=== PATIENT | male | born 1985 | race Caucasian/White ===

== ENCOUNTER 2016-09-16 15:58 | Emergency (ER) | payer OTHER, MEDICARE ==
[~2016-09-16] VITALS: Ht 170.2 cm; Wt 119.9 kg
[~2016-09-16 15:58] MED LIST: ANDROGEL1.62% TOP; BENZONATATE200 M1 PO; BENZTROPINE MESY1 M1 PO; BENZTROPINE MESY2 MG PO; BUSPIRONE HCL15 M1 PO; CELEBREX200 M1 PO; CLONAZEPAM0.5 MG PO; CLONAZEPAM1 MG PO; CLOZARIL100 M1 PO; CLOZARIL100 MG PO; DEPAKOTE250 MG PO; DICYCLOMINE HCL20 M1 PO; DIVALPROEX SOD500 M1 PO; FLOMAX0.4 M1 PO; GABAPENTIN100 M2 PO; HYDROCODONE/ACE1 TA1 PO; HYOSCYAMINE0.125 M6 PO; LEVSIN0.125 M1 PO; LISINOPRIL10 M1 PO; MEDROL DOSEPAK1 PAC PO; MOBIC 15MG15 MG PO; MOTRIN800 MG PO; NAPROSYN500 M1 PO; NORCO 325 MG-51 TAB PO; NORFLEX100 MG PO; ORPHENADRINE C100 MG PO; PERCOCET 5-3251 EACH PO; REGLAN10 M1 PO; ROBITUSSIN W/CO10 ML PO; ROZEREM8 MG PO; SEROQUEL25 M1 PO; TENORMIN50 M1 PO; TESTOSTERO200 MG/1 M IM; TRAMADOL50 MG PO; TRAZODONE150 MG PO; TYLENOL #31 TAB PO; TYLENOL WITH C1 EACH PO; VOLTAREN-XR100 MG PO; VOLTAREN75 MG PO; ZITHROMAX Z-PA250 M1 PO; ZITHROMAX250 M2 PO; ZOFRAN ODT4 M1 SL; ZOFRAN ODT4 MG PO; ZOFRAN4 M1 SL
--- NOTE | 2016-09-16 16:54 | ED GI/GU/ABDOMINAL COMPLAINT ---
History of Present Illness General Chief Complaint: Abdominal Pain/Flank Pain Stated Complaint: RUQ ABD PAIN Source: patient, old records Exam Limitations: no limitations Vital Signs & Intake/Output Vital Signs & Intake/Output Vital Signs Date Time Temp Pulse Resp B/P Pulse O2 O2 Flow FiO2 Ox Delivery Rate 09/16 1929 98.0 91 18 130/73 97 Room Air 09/16 1623 97.6 91 20 116/83 96 Room Air ED Intake and Output 09/17 0000 09/16 1200 Intake Total 0 Output Total Balance 0 Intake, Oral 0 Patient 264 lb Weight Allergies Coded Allergies: adhesive (Mild, MAKES SKIN RED 09/16/16) phenobarbital (CASE SKIN 09/16/16) Reconcile Medications Atenolol 50 MG TABLET 1 TAB PO DAILY BLOOD PRESSURE (Reported) Benztropine Mesylate 1 MG TABLET 1 TAB PO DAILY MENTAL HEALTH (Reported) BUSPIRONE HCL (Buspirone HCl) 15 MG TAB 1 TAB PO TID MENTAL HEALTH (Reported) Celecoxib (Celebrex) 200 MG CAPSULE 1 CAP PO PRN PAIN/INFLAMMATION (Reported) Clozapine (Clozaril) 100 MG TABLET 2.5 TAB PO QPM MENTAL HEALTH (Reported) Dicyclomine Hydrochloride (Bentyl) 10 MG CAPSULE 1 CAP PO TID PRN pain Gabapentin 100 MG CAPSULE 1 CAP PO BID UNKNOWN (Reported) Hyoscyamine Sulfate 0.125 MG TAB.RAPDIS 1 TAB PO AC & AT BEDTIME GI (Reported ) Lisinopril 10 MG TABLET 1 TAB PO DAILY BP (Reported) Metoclopramide HCl (Reglan) 10 MG TABLET 1 TAB PO TID PRN nausea 30 minutes before meals and bedtime Promethazine HCl 25 MG TABLET 1 TAB PO TID PRN N/V (Reported) Quetiapine Fumarate (Seroquel) 25 MG TABLET 1 TAB PO TID MENTAL HEALTH ( Reported) Ramelteon (Rozerem) 8 MG TAB 1 TAB PO QPM SLEEP (Reported) Tamsulosin HCl (Flomax) 0.4 MG CAP.ER.24H 1 CAP PO DAILY URINARY HESITENCY Testosterone Cypionate 200 MG/1 ML VIAL 1 ML IM Q3W TESTOSTERONE (Reported) Triage Note: TRIAGE: PT TO ER C/C RUQ ABD PAIN X 1 MONTH, INTERMITTENT. +N/V, DENIES DIARRHEA TODAY BUT STATES HE HAD DIARRHEA LAST WEEK R/T ANTIBIOTICS HE WAS TAKING FOR ?UTI. LNBM 2 DAYS AGO. -URINARY S/S. Triage Nurses Notes Reviewed? yes Onset: Gradual Duration: week(s):, constant, waxing and waning Timing: recent history Quality/Severity: aching, cramping Severity Numbers: 6 Location: right upper quadrant Radiation: no radiation Activities at Onset: none No Modifying Factors: none Associated Symptoms: nausea/vomiting HPI: This is a 31-year-old male well-known to this ER history of schizoaffective disorder currently being worked up by GI for pancreatitis presents complaining of persistent right upper quadrant epigastric pain constant waxing and waning in intensity for the past one month associated with nausea and vomiting. He states he was seen by his REFORMATORY ATTENDANT today and was sent to the ER for further workup including labs IV fluids. The patient denies any change iN his bowel movements no black or bloody stools no weight loss. His only abdominal surgeries are significant for an appendectomy and hernia repair. He denies tobacco or alcohol use no chest pain or shortness of breath no urinary complaints no hematuria (RASHARD BUCIO) Past History Travel History Traveled to [place] past 21 day No Medical History Any Pertinent Medical History? 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 No (RASHARD BUCIO) Review of Systems Review of Systems Constitutional: Reports: see HPI. All Other Systems: Reviewed and Negative Comments Review of systems: See HPI, All other systems negative. Constitutional, no chills no fever, no malaise HEENT: No visual changes no sore throat no congestion, no ear pain Cardiovascular: No chest pain , no palpitation Skin, no jaundice no rashes, no change in skin Respiratory: No dyspnea no cough no sputum no hemoptysis GI: nausea vomiting, no diarrhea, no bloating/constipation : No dysuria No hematuria, Muscle skeletal: No joint pain, no joint swelling, no back pain, no neck pain, Neurologic: No numbness no confusion, no headache Psych: No stress Heme/endocrine: No bruising no bleeding Immunology: No lymphadenopathy (RASHARD BUCIO) Physical Exam Physical Exam Gastrointestinal: normal bowel sounds, soft, non-tender Comments: Well-developed well-nourished person in no acute distress HEENT: Normal EENT exam; PERRL, EOMI, HEAD is atraumatic. moist mucous membranes. Neck: Supple, normal range of motion Back: Nontender, no CVA tenderness. Full range of motion Cardiovascular: Regular rate and rhythms no murmurs rubs Respiratory: Chest nontender.No respiratory distress. Patient speaking in full complete sentences. Breath sounds clear to auscultation bilaterally: NO W/R/R Abdomen: Soft, nontender negative Paredes sign, there is no reproducible tenderness to the right upper quadrant epigastrium nondistended, no appreciable organomegaly. Normal bowel sounds. No rebound/guarding, No appreciable enlargement of the abdominal aorta, No ascites. Extremity: No edema, full range of motion of extremities, Neuro: Alert oriented x3, motor sensory normal, There were no obvious focal neurologic abnormalities. Skin: No appreciable rash on exposed skin, skin is warm and dry. No jaundice Psych: Mood and affect is normal, memory and judgment is normal. Core Measures ACS in differential dx? No Severe Sepsis Present: No Septic Shock Present: No (RASHARD BUCIO) Progress Differential Diagnosis: appendicitis, biliary colic, bowel obstruction, colon cancer, cholecystitis, diverticulitis, epididymitis, esophageal varices, gastritis, hepatitis, hernia, ischemic bowel, inflamm bowel dis, Landy-Torsten tear, orchitis, pancreatitis, prostatitis, peptic ulcer, PUD/GERD, perforated viscous, SBO Plan of Care: Orders Procedure Date/time Status Saline Lock 09/16 1658 Active LIPASE 09/16 1658 Complete COMPREHENSIVE METABOLIC PANEL 09/16 1658 Complete CBC WITHOUT DIFFERENTIAL 09/16 1658 Complete AMYLASE 09/16 1658 Complete Laboratory Tests 09/16/16 1716: Anion Gap 15, Estimated GFR > 60, BUN/Creatinine Ratio 13.0, Glucose 82, Calcium 9.7, Total Bilirubin 0.5, AST 22, ALT 44, Alkaline Phosphatase 88, Total Protein 7.6, Albumin 4.6, Globulin 3.0, Albumin/Globulin Ratio 1.5, Amylase 31, Lipase 62, CBC w Diff NO MAN DIFF REQ, RBC 5.85, MCV 79.7 L, MCH 26.1 L, RDW 14.6 H, MPV 9.4, Gran % 72.6, Lymphocytes % 18.7 L, Monocytes % 5.8, Eosinophils % 2.6, Basophils % 0.3, Absolute Granulocytes 5.2, Absolute Lymphocytes 1.3, Absolute Monocytes 0.4, Absolute Eosinophils 0.2, Absolute Basophils 0, PUBS MCHC 32.8 L Labs ordered old records reviewed. Patient's recent ultrasound and CAT scan from last month were reviewed. IV fluids Toradol 30 IV Zofran 4 IV ordered patient clinically appears well at this time Repeat evaluation patient has had no episodes of vomiting here denies pain. Discussed with patient at length all these lab results CAT scan findings need for close follow-up with GI. Prescription for Reglan Bentyl provided he feels comfortable with this plan answered all his questions cleared for discharge (HUGO DE LA ROSA,RASHARD) Diagnostic Imaging: Viewed by Me: CT Scan. Discussed w/RAD: CT Scan. Radiology Impression: PATIENT: ANDI ANDRADE PRESENT AGE: 31 PATIENT ACCOUNT NO: [id number] : 85 LOCATION: [facility] ORDERING PHYSICIAN: RASHARD DE LA ROSA SERVICE DATE: 09/16/16 EXAM TYPE: CAT - CT ABD & PELVIS W IV CONTRAST EXAMINATION: CT ABDOMEN AND PELVIS WITH CONTRAST CLINICAL INFORMATION: 31-year-old male patient with right upper quadrant abdominal and epigastric pain . COMPARISON: CT exams of the abdomen and pelvis performed in March 2011, February 2012, October 2015, May 2016, and 05/2017. (All normal). TECHNIQUE: Multidetector volumetric imaging was performed of the abdomen and pelvis before and after the IV administration of 100 mL of Optiray 320 intravenous contrast. Sagittal and coronal reformatted images were obtained on the technologist's workstation. DLP: 1205 mGy-cm. FINDINGS: Game Bird Farmer view shows a moderate increase in the burden of formed stool in the colon when compared to the last study. LUNG BASES: The visualized lung bases are unremarkable. LIVER, GALLBLADDER, AND BILIARY TREE: Normal. No change. PANCREAS: Unremarkable. SPLEEN: Unremarkable. ADRENAL GLANDS: Unremarkable. KIDNEYS AND URETERS: The kidneys are normal in size, shape, and attenuation. No hydronephrosis, hydroureter, or calculi seen. No perinephric stranding. BLADDER: Empty. GASTROINTESTINAL TRACT: The small and large bowel are unremarkable. The appendix has been removed. ABDOMINAL WALL: No significant hernia is appreciated. LYMPH NODES: Normal. VASCULAR: Unremarkable. PELVIC VISCERA: Unremarkable. OSSEOUS STRUCTURES: Unremarkable. IMPRESSION: No significant abnormality. DICTATED BY: SANCHO GIBSON MD DATE/TIME DICTATED:09/16/162024 HEALTH ADVISOR:CASSANDRA DATE/TIME TRANSCRIBED:09/16/162024 CONFIDENTIAL, DO NOT COPY WITHOUT APPROPRIATE AUTHORIZATION. <Electronically signed in Other Vendor System> SIGNED BY: SANCHO GIBSON MD 09/16/162035 Initial ED EKG: none (RASHARD BUCIO) Departure Departure Time of Disposition: 2104 Disposition: HOME OR SELF CARE Condition: Stable Clinical Impression Primary Impression: Chronic abdominal pain Referrals: ROSALIND WANG (PCP/Family) Additional Instructions: Follow-up with your primary care physician as well as her phlebotomy services technician on Monday. Bentyl for pain. Reglan as directed. these prescriptions were sent to [facility]. Tamiment diet clear liquids return anytime sooner with any concerns Departure Forms: Customer Survey General Discharge Information Prescriptions: Current Visit Scripts Dicyclomine Hydrochloride (Bentyl) 1 CAP PO TID PRN pain #20 CAP Metoclopramide HCl (Reglan) 1 TAB PO TID PRN nausea #15 TAB 30 minutes before meals and bedtime (RASHARD BUCIO) PA/ROUTING MACHINE OPERATOR Co-Sign Statement Statement: ED Attending supervision documentation- [] I saw and evaluated the patient. I have also reviewed all the pertinent lab results and diagnostic results. I agree with the findings and the plan of care as documented in the PA's/ROUTING MACHINE OPERATOR's documentation. [x] I have reviewed the ED Record and agree with the PA's/ROUTING MACHINE OPERATOR's documentation. [] Additions or exceptions (if any) to the PAs/ROUTING MACHINE OPERATOR's note and plan are summarized below: [] (ISMAEL SOL,JOSSE Stewart)
[2016-09-16 17:50] LABS: ABSOLUTE BASOPHIL COUNT 0 /CUMM (0.0-0.2); ABSOLUTE EOSINOPHIL COUNT 0.2 /CUMM (0.0-0.7); ABSOLUTE GRANULOCYTE CT 5.2 /CUMM (1.4-6.5); ABSOLUTE LYMPH COUNT 1.3 /CUMM (1.2-3.4); ABSOLUTE MONOCYTE COUNT 0.4 /CUMM (0.10-0.60); BASOPHIL % 0.3 % (0.0-2.0); EOSINOPHIL % 2.6 % (0-5); GRANULOCYTE % 72.6 % (42.2-75.2); HEMATOCRIT 46.7 % (42-52); MEAN CORPUSCULAR HGB 26.1 PG (27.0-31.0); MEAN CORPUSCULAR HGB CONC 32.8 G/DL (33.0-37.0); MEAN CORPUSCULAR VOLUME 79.7 FL (80.0-94.0); MEAN PLATELET VOLUME 9.4 FL (7.4-10.4); PLATELET COUNT 207 /CUMM (130-400); RBC DISTRIBUTION WIDTH 14.6 % (11.5-14.5); RED BLOOD CELL CT 5.85 /CUMM (4.70-6.10); WHITE BLOOD CELL COUNT 7.2 /CUMM (4.8-10.8)
[2016-09-16] MEDS ORDERED: PROMETHAZINE HC25 M3 PO (18:41)
[2016-09-16 19:29] VITALS: BP 130/73
--- NOTE | 2016-09-16 20:36 | CT SCAN REPORT ---
EXAMINATION: CT ABDOMEN AND PELVIS WITH CONTRAST CLINICAL INFORMATION: 31-year-old male patient with right upper quadrant abdominal and epigastric pain . COMPARISON: CT exams of the abdomen and pelvis performed in March 2011, February 2012, October 2015, May 2016, and 08/12/2017. (All normal). TECHNIQUE: Multidetector volumetric imaging was performed of the abdomen and pelvis before and after the IV administration of 100 mL of Optiray 320 intravenous contrast. Sagittal and coronal reformatted images were obtained on the technologist's workstation. DLP: 1205 mGy-cm. FINDINGS: Display Mechanic view shows a moderate increase in the burden of formed stool in the colon when compared to the last study. LUNG BASES: The visualized lung bases are unremarkable. LIVER, GALLBLADDER, AND BILIARY TREE: Normal. No change. PANCREAS: Unremarkable. SPLEEN: Unremarkable. ADRENAL GLANDS: Unremarkable. KIDNEYS AND URETERS: The kidneys are normal in size, shape, and attenuation. No hydronephrosis, hydroureter, or calculi seen. No perinephric stranding. BLADDER: Empty. GASTROINTESTINAL TRACT: The small and large bowel are unremarkable. The appendix has been removed. ABDOMINAL WALL: No significant hernia is appreciated. LYMPH NODES: Normal. VASCULAR: Unremarkable. PELVIC VISCERA: Unremarkable. OSSEOUS STRUCTURES: Unremarkable. IMPRESSION: No significant abnormality.
[2016-09-16] MEDS ORDERED: BENTYL10 M1 PO (21:09)
[2016-09-16] MEDS ORDERED: REGLAN10 M1 PO (21:09)
== END 2016-09-16 21:27 ==
LOC: ERH 15:58
PROVIDERS: Physician Assistant Medical
DX: R10.11 Right upper quadrant pain (principal)
CPT/HCPCS: 74177; 96361; 96374; 96375; J1885; J2405

== ENCOUNTER 2016-10-06 13:44 | Emergency (ER) | payer OTHER, MEDICARE ==
[~2016-10-06] VITALS: Ht 170.2 cm; Wt 117.5 kg
[~2016-10-06 13:44] MED LIST changes: +BENTYL10 M1 PO; +PROMETHAZINE HC25 M3 PO
--- NOTE | 2016-10-06 16:31 | ED GI/GU/ABDOMINAL COMPLAINT ---
History of Present Illness General Chief Complaint: Abdominal Pain/Flank Pain Stated Complaint: WANTS TO BE CHECKED FOR HIS ABD.PAIN AGAIN Source: patient, old records Exam Limitations: no limitations Vital Signs & Intake/Output Vital Signs & Intake/Output Vital Signs Date Time Temp Pulse Resp B/P Pulse O2 O2 Flow FiO2 Ox Delivery Rate 10/06 1709 96.0 78 18 127/75 98 Room Air 10/06 1351 97.3 83 16 135/83 98 Room Air Allergies Coded Allergies: adhesive (Mild, MAKES SKIN RED 09/16/16) phenobarbital (CASE SKIN 09/16/16) Reconcile Medications Atenolol 50 MG TABLET 1 TAB PO DAILY BLOOD PRESSURE (Reported) Benztropine Mesylate 1 MG TABLET 1 TAB PO DAILY MENTAL HEALTH (Reported) BUSPIRONE HCL (Buspirone HCl) 15 MG TAB 1 TAB PO TID MENTAL HEALTH (Reported) Celecoxib (Celebrex) 200 MG CAPSULE 1 CAP PO PRN PAIN/INFLAMMATION (Reported) Clozapine (Clozaril) 100 MG TABLET 2.5 TAB PO QPM MENTAL HEALTH (Reported) Esomeprazole (Nexium) 40 MG CAPSULE.DR 1 CAP PO DAILY GI (Reported) Gabapentin 100 MG CAPSULE 1 CAP PO BID UNKNOWN (Reported) Hyoscyamine Sulfate 0.125 MG TAB.RAPDIS 1 TAB PO AC & AT BEDTIME GI (Reported ) Lisinopril 10 MG TABLET 1 TAB PO DAILY BP (Reported) Metoclopramide HCl (Reglan) 10 MG TABLET 1 TAB PO TID PRN nausea 30 minutes before meals and bedtime Promethazine HCl 25 MG TABLET 1 TAB PO TID PRN N/V (Reported) Quetiapine Fumarate (Seroquel) 25 MG TABLET 1 TAB PO TID MENTAL HEALTH ( Reported) Tamsulosin HCl (Flomax) 0.4 MG CAP.ER.24H 1 CAP PO DAILY URINARY HESITENCY Testosterone Cypionate 200 MG/1 ML VIAL 1 ML IM Q3W TESTOSTERONE (Reported) Zolpidem Tartrate 10 MG TABLET 1 TAB PO PRN SLEEP (Reported) Triage Note: 31 Y/O MALE C/O RUQ/RLQ PAIN X 1 YEAR. STATES HE WAS EVAL'D LAST MONTH FOR SAME AND IS OUT OF PRESCRIPTIONS. F/U WITH GI DOCTOR (DR RENDON) AND HAD OUTPATIENT TEST TODAY WHICH HE STATES HE DOES NOT KNOW THE RESULTS OF. CAME TO ED BECAUSE PAIN PERSISTS. ADVISED TO REMAIN NPO UNTIL PROVIDER EVAL. Triage Nurses Notes Reviewed? yes HPI: Patient presents for evaluation of a right upper quadrant abdominal pain that began suddenly about 2 days ago that radiates into the right lower quadrant and flank. Patient has had chronic abdominal pain episodes for years now. His current episode is described as an intermittent burning pain that seems to get worse with eating certain foods such as porkchops and [place]. He has had mild vomiting but no associated diarrhea or dysuria. Although he denies fever or cold symptoms he states he often feels chills at night. He had a gastric emptying study done earlier today and his last visit to his GI specialist was about one month ago. Past History Travel History Traveled to [place] past 21 day No Medical History Any Pertinent Medical History? 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 No Review of Systems Review of Systems Constitutional: Reports: no symptoms. EENTM: Reports: no symptoms. Respiratory: Reports: no symptoms. Cardiovascular: Reports: no symptoms. GI: Reports: see HPI. Genitourinary: Reports: no symptoms. Musculoskeletal: Reports: no symptoms. Skin: Reports: no symptoms. Neurological/Psychological: Reports: no symptoms. Hematologic/Endocrine: Reports: no symptoms. Immunologic/Allergic: Reports: no symptoms. All Other Systems: Reviewed and Negative Physical Exam Physical Exam Gastrointestinal: SEE BELOW Comments: Gen.: Well-nourished, well-developed, no acute respiratory distress. Head: Normocephalic, atraumatic. Eyes: Normal inspection bilaterally Ears: Normal inspection bilaterally Nose: Normal inspection Throat/mouth : Moist mucosa Neck: Supple, full range of motion, no goiter Heart: Regular rate and rhythm, no murmurs rubs or gallops Lungs: Clear to auscultation bilaterally with normal air entry Chest: Nontender Back: Normal range of motion, nontender Abdomen: Soft, tenderness over the right upper quadrant without rebound or guarding, nondistended, normal bowel sounds Extremities: Normal range of motion grossly, equal radial pulses, no cyanosis clubbing or edema Neurologic: Cranial nerves grossly intact, speech is clear Skin: warm and dry Psychiatric: Calm, cooperative, no apparent delusions or hallucinations Core Measures ACS in differential dx? No Severe Sepsis Present: No Septic Shock Present: No Progress Differential Diagnosis: GASTROPARESIS, GASTRIC ULCER, GASTRITIS, ACID REFLUX, PANCREATITIS, BILIARY COLIC, HEPATIC DISEASE Plan of Care: Orders Procedure Date/time Status URINALYSIS 10/06 164 Complete LIPASE 10/06 1640 Complete COMPREHENSIVE METABOLIC PANEL 10/06 1640 Complete CBC WITHOUT DIFFERENTIAL 10/06 1640 Complete Laboratory Tests 10/06/16 1706: Urine Color YEL, Urine Clarity CLEAR, Urine pH 6.0, Ur Specific [place] 1.025, Urine Protein NEG, Urine Ketones NEG, Urine Nitrite NEG, Urine Bilirubin NEG, Urine Urobilinogen 0.2, Ur Leukocyte Esterase NEG, Ur Microscopic EXAM NOT REQUIRED, Urine Hemoglobin NEG, Urine Glucose NEG 10/06/16 1655: Anion Gap 10, Estimated GFR > 60, BUN/Creatinine Ratio 17.0, Glucose 82, Calcium 9.5, Total Bilirubin 0.6, AST 20, ALT 41, Alkaline Phosphatase 88, Total Protein 7.3, Albumin 4.3, Globulin 3.0, Albumin/Globulin Ratio 1.4, Lipase 53, CBC w Diff NO MAN DIFF REQ, RBC 5.47, MCV 80.8, MCH 26.2 L, RDW 14.9 H, MPV 9.2, Gran % 76.2 H, Lymphocytes % 17.2 L, Monocytes % 4.8, Eosinophils % 1.4, Basophils % 0.4, Absolute Granulocytes 6.8 H, Absolute Lymphocytes 1.5, Absolute Monocytes 0.4, Absolute Eosinophils 0.1, Absolute Basophils 0, PUBS MCHC 32.5 L Initial ED EKG: none Comments: 10/06/2016 7:17:22 PM I have updated Roe on test results. Plan continue Reglan and Bentyl. Follow-up with GI. Departure Departure Disposition: HOME OR SELF CARE Condition: Stable Clinical Impression Primary Impression: Nonspecific abdominal pain Referrals: ROSALIND WANG (PCP/Family) Additional Instructions: Reglan as prescribed for nausea or to enhance gastric emptying. As needed for abdominal pain. Follow-up with your GI specialist tomorrow for reevaluation and further testing as indicated. Notify your primary care doctor of this emergency department visit and treatment plan. Return if any concerns or sudden worsening. Please note that there might be incidental findings in your evaluation that are unrelated to the current emergency department visit. Please notify your primary care doctor about this emergency department visit in order to obtain and review all of the testing performed so that these incidental findings can be monitored as needed. If you had an x-ray performed, please understand that some fractures may not be seen on the initial set of x-rays. If your symptoms persist you might need a repeat set of x-rays to check for such a fracture. If you had a laceration evaluated, please understand that foreign bodies such as glass or wood may not be visible to the naked eye or on plain x-rays. If the wound becomes red, swollen, increasingly more painful or if there is any drainage from the wound, please have it reevaluated by a physician for the possibility of a retained foreign body. Thank you for choosing the [facility] Department for your care. It was a pleasure to serve you today. Luis Manuel Nascimento M.D. [facility] Departure Forms: Customer Survey General Discharge Information Prescriptions: Current Visit Scripts Dicyclomine Hydrochloride (Bentyl) 1 CAP PO TID PRN ABDOMINAL PAIN #12 CAP Metoclopramide HCl (Reglan) 1 TAB PO 4 TIMES/DAY PRN NAUSEA/VOMITING #20 TAB 30 minutes before meals and bedtime
[2016-10-06] MEDS ORDERED: ZOLPIDEM TARTRA10 M1 PO (16:34)
[2016-10-06] MEDS ORDERED: NEXIUM40 M1 PO (16:34)
[2016-10-06 17:04] LABS: ABSOLUTE BASOPHIL COUNT 0 /CUMM (0.0-0.2); ABSOLUTE EOSINOPHIL COUNT 0.1 /CUMM (0.0-0.7); ABSOLUTE GRANULOCYTE CT 6.8 /CUMM (1.4-6.5); ABSOLUTE LYMPH COUNT 1.5 /CUMM (1.2-3.4); ABSOLUTE MONOCYTE COUNT 0.4 /CUMM (0.10-0.60); BASOPHIL % 0.4 % (0.0-2.0); EOSINOPHIL % 1.4 % (0-5); GRANULOCYTE % 76.2 % (42.2-75.2); HEMATOCRIT 44.2 % (42-52); MEAN CORPUSCULAR HGB 26.2 PG (27.0-31.0); MEAN CORPUSCULAR HGB CONC 32.5 G/DL (33.0-37.0); MEAN CORPUSCULAR VOLUME 80.8 FL (80.0-94.0); MEAN PLATELET VOLUME 9.2 FL (7.4-10.4); PLATELET COUNT 210 /CUMM (130-400); RBC DISTRIBUTION WIDTH 14.9 % (11.5-14.5); RED BLOOD CELL CT 5.47 /CUMM (4.70-6.10)
[2016-10-06 17:09] VITALS: BP 127/75
--- NOTE | 2016-10-06 19:11 | ULTRASOUND REPORT ---
EXAMINATION: US ABDOMEN LIMITED CLINICAL INFORMATION: Right-sided abdominal pain. COMPARISON: CT 09/16/2016 TECHNIQUE: Real-time imaging of the right upper quadrant abdominal viscera. FINDINGS: PANCREAS: Portions of the pancreatic tail are obscured by bowel gas. Otherwise normal. LIVER: Normal. The liver demonstrates normal size, contour and echogenicity. No focal lesion or intrahepatic biliary duct dilatation. GALLBLADDER: Normal. The gallbladder is physiologically distended without evidence of stones, sludge, polyps, wall thickening or pericholecystic fluid. COMMON BILE DUCT: Normal in caliber measuring 0.3 cm in diameter. RIGHT KIDNEY: Normal. No hydronephrosis. No renal calculi or focal parenchymal lesions. The kidney measures 9.9 cm in maximum dimension. FREE FLUID: None. IMPRESSION: Normal right upper quadrant ultrasound noting incomplete visualization of the pancreas.
[2016-10-06] MEDS ORDERED: REGLAN10 M1 PO ×2 (19:20→19:27)
[2016-10-06] MEDS ORDERED: BENTYL10 M1 PO ×2 (19:20→19:27)
== END 2016-10-06 19:29 ==
LOC: ERH 13:44
PROVIDERS: Emergency Medicine
DX: R10.11 Right upper quadrant pain (principal)
CPT/HCPCS: 81003

== ENCOUNTER 2016-12-20 16:12 | Emergency (ER) | payer OTHER, MEDICARE ==
[~2016-12-20] VITALS: Ht 170.2 cm; Wt 122.0 kg
[~2016-12-20 16:12] MED LIST changes: +NEXIUM40 M1 PO; +ZOLPIDEM TARTRA10 M1 PO
[2016-12-20] MEDS ORDERED: ZOLPIDEM TARTRAT5 M1 PO (17:07)
[2016-12-20] MEDS ORDERED: BACLOFEN10 M1 PO (17:07)
[2016-12-20] MEDS ORDERED: PANTOPRAZOLE SO40 M1 PO (17:07)
[2016-12-20] MEDS ORDERED: AMOX-CLAV 875-1 EACH PO (17:08)
[2016-12-20] MEDS ORDERED: NEURONTIN300 M1 PO (17:08)
--- NOTE | 2016-12-20 17:34 | ED GENERAL ADULT ---
History of Present Illness General Chief Complaint: General Adult Stated Complaint: SENT BY DR. CORTES FOR HIGH WBC COUNT Source: patient, old records Exam Limitations: no limitations Vital Signs & Intake/Output Vital Signs & Intake/Output Vital Signs Date Time Temp Pulse Resp B/P Pulse O2 O2 Flow FiO2 Ox Delivery Rate 12/20 1617 97.0 90 16 114/76 97 Room Air Allergies Coded Allergies: adhesive (Mild, MAKES SKIN RED 09/16/16) phenobarbital (CASE SKIN 09/16/16) Reconcile Medications Amoxicillin/Clavulanate Potass (Amox-Clav 875-125 MG Tablet) 875 MG-125 MG TABLET 1 TAB PO BID ANTIBIOTIC (Reported) Atenolol (Tenormin) 50 MG TABLET 1 TAB PO DAILY BP (Reported) Baclofen 10 MG TABLET 1 TAB PO TID MUSCLE RELAXER (Reported) Benztropine Mesylate 1 MG TABLET 1 TAB PO DAILY MENTAL HEALTH (Reported) Buspirone HCl 15 MG TABLET 1 TAB PO TID MENTAL HEALTH (Reported) Celecoxib (Celebrex) 200 MG CAPSULE 1 CAP PO PRN PAIN/INFLAMMATION (Reported) Clozapine (Clozaril) 100 MG TABLET 2.5 TAB PO QPM MENTAL HEALTH (Reported) Gabapentin (Neurontin) 300 MG CAPSULE 1 CAP PO TID NERVE PAIN (Reported) Hyoscyamine Sulfate 0.125 MG TAB.RAPDIS 1 TAB PO AC & AT BEDTIME PRN GI ( Reported) Ibuprofen 800 MG TABLET 1 TAB PO Q8 PRN PAIN Lisinopril 10 MG TABLET 1 TAB PO DAILY BP (Reported) Ondansetron (Zofran Odt) 4 MG TAB.RAPDIS 1 TAB SL TID PRN nausea Pantoprazole Sodium 40 MG TABLET.DR 1 TAB PO DAILY GI (Reported) Promethazine HCl 25 MG TABLET 1 TAB PO TID PRN N/V (Reported) Quetiapine Fumarate (Seroquel) 25 MG TABLET 1 TAB PO TID MENTAL HEALTH ( Reported) Testosterone Cypionate 200 MG/1 ML VIAL 1 ML IM Q3W TESTOSTERONE (Reported) Tylenol With Codeine (Tylenol With Codeine #3 Tablet) 300 MG-30 MG TABLET 1 TAB PO Q4-6 PRN PRN pain may cause drowsiness Zolpidem Tartrate 5 MG TABLET 1 TAB PO QHS SLEEP (Reported) Triage Note: PT SENT IN BY DR. SEBASTIAN FOR ELEVATED WHITE COUNT. PT STATES HE HAS BEEN TAKING ABX FOR AN INFECTION BUT STATES HE DOESN'T KNOW FROM WHERE. PT REPORTS FEVERS BUT ONLY AT NIGHT. . Triage Nurses Notes Reviewed? yes HPI: Patient is a 31-year-old male presents complaining of feeling sick. Patient reports that he has had a cough for approximately 3 weeks with intermittent fevers. Patient also reporting right upper quadrant pain that radiates to his right upper back. Patient has seen his primary care doctor and had blood work by his psychiatrist. Patient was placed on azithromycin and then Augmentin with no improvement. Fevers up to 101.2F, and have been fluctuating. Fever of 101.2 was 3 days ago. Patient reports that he has been waking up in the middle the night diaphoretic. Patient had a chest x-ray last week that was reported as normal. Patient had blood work yesterday and was contacted by his psychiatrist on him that his white blood cell count was very elevated and that he should come to the emergency department for further evaluation. Intermittent nausea and vomiting. Patient reports that drinking fluids caused him to feel nauseous and feel worse. (YOLANDA CASTILLO) Past History Travel History Traveled to [place] past 21 day No Medical History Any Pertinent Medical History? 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 No (YOLANDA CASTILLO) Review of Systems Review of Systems Constitutional: Reports: chills, diaphoresis, fever, malaise. EENTM: Reports: no symptoms. Respiratory: Reports: cough, sputum production. Cardiovascular: Denies: chest pain. GI: Reports: abdominal pain, nausea, vomiting. Denies: diarrhea. Genitourinary: Reports: no symptoms. Musculoskeletal: Reports: back pain. Skin: Reports: no symptoms. Neurological/Psychological: Reports: no symptoms. Hematologic/Endocrine: Reports: no symptoms. Immunologic/Allergic: Reports: no symptoms. (YOLANDA CASTILLO) Physical Exam Physical Exam General Appearance: well developed/nourished, alert, awake Head: atraumatic, normal appearance Eyes: Bilateral: normal appearance, PERRL, EOMI. Ears, Nose, Throat: normal pharynx, normal ENT inspection, hearing grossly normal Neck: normal inspection, supple, full range of motion Respiratory: normal breath sounds, chest non-tender, no respiratory distress, lungs clear Cardiovascular: regular rate/rhythm Gastrointestinal: normal bowel sounds, soft, mild right upper quadrant tenderness. Back: normal inspection, normal range of motion, no vertebral tenderness, no CVA tenderness Extremities: normal inspection, normal capillary refill, normal range of motion, no edema Neurologic/Psych: no motor/sensory deficits, awake, alert, oriented x 3, normal gait, normal mood/affect Skin: intact, normal color, warm/dry Lymphatic: no anterior cervical lion Core Measures ACS in differential dx? No CVA/TIA Diagnosis: No Severe Sepsis Present: No Septic Shock Present: No (YOLANDA CASTILLO) Progress Differential Diagnoses I considered the following diagnoses in my evaluation of the patient: Pneumonia, biliary colic, cholecystitis, sepsis, bacteremia, medication induced leukocytosis, tick born illness, uti Plan of Care: Orders Procedure Date/time Status BLOOD CULTURE 12/20 1741 Active LACTIC ACID 12/20 1741 Complete COMPREHENSIVE METABOLIC PANEL 12/20 1741 Complete CBC WITHOUT DIFFERENTIAL 12/20 174 Complete CULTURE,URINE 12/20 1710 Active URINALYSIS 12/20 1710 Complete Laboratory Tests 12/20/16 1800: Anion Gap 15, Estimated GFR > 60, BUN/Creatinine Ratio 24.4, Glucose 80, Lactic Acid 0.8, Calcium 9.7, Total Bilirubin 0.6, AST 15 L, ALT 50, Alkaline Phosphatase 106, Total Protein 7.5, Albumin 4.4, Globulin 3.1, Albumin/Globulin Ratio 1.4, CBC w Diff NO MAN DIFF REQ, RBC 5.58, MCV 81.8, MCH 26.5 L, RDW 17.8 H, MPV 8.7, Gran % 82.5 H, Lymphocytes % 13.0 L, Monocytes % 3.4, Eosinophils % 0.3, Basophils % 0.8, Absolute Granulocytes 15.3 H, Absolute Lymphocytes 2.4, Absolute Monocytes 0.6, Absolute Eosinophils 0.1, Absolute Basophils 0.2, PUBS MCHC 32.4 L 12/20/16 1705: Urine Color YEL, Urine Clarity CLEAR, Urine pH 6.0, Ur Specific [place] 1.025, Urine Protein NEG, Urine Ketones NEG, Urine Nitrite NEG, Urine Bilirubin NEG, Urine Urobilinogen 0.2, Ur Leukocyte Esterase NEG, Ur Microscopic EXAM NOT REQUIRED, Urine Hemoglobin NEG, Urine Glucose NEG Microbiology 12/20 1857 BLOOD: Blood Culture - RECD 12/20 1800 BLOOD: Blood Culture - RECD 12/20 1704 URINE ROUT: Urine Culture - RECD 12/20/2016 7:29:31 PM; results of labs and imaging discussed with patient. Patient with elevated white blood cell count, patient is afebrile at this time, lactic acid is normal. No peritoneal signs on abdominal exam, CT scan of abdomen and pelvis deferred. Patient appears stable for discharge with blood cultures pending and to follow-up with his primary care doctor for further evaluation. (DONAVAN DE LA ROSA,YOLANDA) Diagnostic Imaging: Viewed by Me: Radiology Read. Discussed w/RAD: Radiology Read. Radiology Impression: PATIENT: ANDI ANDRADE PRESENT AGE: 31 PATIENT ACCOUNT NO: [id number] : 85 LOCATION: [facility] ORDERING PHYSICIAN: YOLANDA DE LA ROSA SERVICE DATE: 12/20/16 EXAM TYPE: RAD - XRY-CHEST XRAY, PA AND LATERAL EXAMINATION: XR CHEST CLINICAL INFORMATION: Cough. Sputum production. Fever. Rule out pneumonia. COMPARISON: Chest x-ray of 12/15/2016 and multiple prior chest x-rays dated back to 2011. TECHNIQUE: 2 views of the chest were obtained. FINDINGS: The lungs are mildly hypoexpanded however clear. No pleural effusions or pneumothorax. The cardiomediastinal silhouette is stable and normal. No abnormal tracheal deviation. The visualized osseous structures and upper abdomen are unremarkable. IMPRESSION: No radiographic evidence of pneumonia. No acute pulmonary process. No significant interval change is noted compared to last study. DICTATED BY: RONA SOL,ANAL DATE/TIME DICTATED:12/20/161818 CEMETERY COUNSELOR:CASSANDRA DATE/TIME TRANSCRIBED:12/20/161818 CONFIDENTIAL, DO NOT COPY WITHOUT APPROPRIATE AUTHORIZATION. <Electronically signed in Other Vendor System> SIGNED BY: LEIDA ERA MD 12/20/16 1824, PATIENT: ANDI ANDRADE PRESENT AGE: 31 PATIENT ACCOUNT NO: [id number] : 85 LOCATION: [facility] ORDERING PHYSICIAN: YOLANDA DE LA ROSA SERVICE DATE: -1740 EXAM TYPE: US - US-LIMITED ABDOMEN EXAMINATION: US ABDOMEN LIMITED CLINICAL INFORMATION: Abdominal and chest pain for 3 weeks. COMPARISON: Limited abdominal ultrasound of 10/06/2016. Abdomen and pelvic CT scan of 09/16/2016. TECHNIQUE: Real-time imaging of the right upper quadrant abdominal viscera. Technically limited evaluation by patient's body habitus and presence of intra- abdominal gas. FINDINGS: PANCREAS: Visualized portions of the pancreatic head are unremarkable, remainder of the pancreas is obscured by visualization due to overlying bowel gas. LIVER: Normal. The liver demonstrates normal size, contour and echogenicity. No focal lesion or intrahepatic biliary duct dilatation. GALLBLADDER: Normal. The gallbladder is physiologically distended without evidence of stones, sludge, polyps, wall thickening or pericholecystic fluid. COMMON BILE DUCT: Normal in caliber measuring 0.6 cm in diameter. RIGHT KIDNEY: Normal. No hydronephrosis. No renal calculi or focal parenchymal lesions. The kidney measures 10.7 cm in maximum dimension. FREE FLUID: None. IMPRESSION: Incomplete evaluation of the pancreas, otherwise unremarkable right upper quadrant abdominal ultrasound. DICTATED BY: LEIDA REA MD DATE/TIME DICTATED:1854 CEMETERY COUNSELOR:CASSANDRA DATE/TIME TRANSCRIBED:12/20/161854 CONFIDENTIAL, DO NOT COPY WITHOUT APPROPRIATE AUTHORIZATION. <Electronically signed in Other Vendor System> SIGNED BY: LEIDA REA MD 12/20/161909 Initial ED EKG: none (DONAVAN DE LA ROSA,YOLANDA) Departure Departure Time of Disposition: 1929 Disposition: HOME OR SELF CARE Condition: Stable Clinical Impression Primary Impression: Elevated white blood cell count Qualifiers: Leukocytosis type: unspecified Qualified Code: D72.829 - Elevated white blood cell count, unspecified Referrals: HEMA SOL,SARAH La (PCP/Family) Additional Instructions: Follow-up with your primary doctor this week for further evaluation. Call tomorrow morning for appointment. Return to the emergency department if worsening of symptoms. Departure Forms: Customer Survey General Discharge Information (YOLANDA CASTILLO) Departure Prescriptions: Current Visit Scripts Ondansetron (Zofran Odt) 1 TAB SL TID PRN nausea #10 TAB Tylenol With Codeine (Tylenol With Codeine #3 Tablet) 1 TAB PO Q4-6 PRN PRN pain #15 TAB may cause drowsiness Ibuprofen 1 TAB PO Q8 PRN PAIN #20 TAB PA/BANK TELLER Co-Sign Statement Statement: ED Attending supervision documentation- [] I saw and evaluated the patient. I have also reviewed all the pertinent lab results and diagnostic results. I agree with the findings and the plan of care as documented in the PA's/BANK TELLER's documentation. x I have reviewed the ED Record and agree with the PA's/BANK TELLER's documentation. [] Additions or exceptions (if any) to the PAs/BANK TELLER's note and plan are summarized below: [] (ALYCE SOL,GRICELDA) Critical Care Note Critical Care Note Critical Care Time: non-applicable (YOLANDA CASTILLO)
[2016-12-20 18:06] LABS: ABSOLUTE BASOPHIL COUNT 0.2 /CUMM (0.0-0.2); ABSOLUTE EOSINOPHIL COUNT 0.1 /CUMM (0.0-0.7); ABSOLUTE GRANULOCYTE CT 15.3 /CUMM (1.4-6.5); ABSOLUTE LYMPH COUNT 2.4 /CUMM (1.2-3.4); ABSOLUTE MONOCYTE COUNT 0.6 /CUMM (0.10-0.60); BASOPHIL % 0.8 % (0.0-2.0); EOSINOPHIL % 0.3 % (0-5); GRANULOCYTE % 82.5 % (42.2-75.2); HEMATOCRIT 45.6 % (42-52); MEAN CORPUSCULAR HGB 26.5 PG (27.0-31.0); MEAN CORPUSCULAR HGB CONC 32.4 G/DL (33.0-37.0); MEAN CORPUSCULAR VOLUME 81.8 FL (80.0-94.0); MEAN PLATELET VOLUME 8.7 FL (7.4-10.4); PLATELET COUNT 207 /CUMM (130-400); RBC DISTRIBUTION WIDTH 17.8 % (11.5-14.5); RED BLOOD CELL CT 5.58 /CUMM (4.70-6.10); WHITE BLOOD CELL COUNT 18.5 /CUMM (4.8-10.8)
--- NOTE | 2016-12-20 18:24 | RADIOLOGY REPORT ---
EXAMINATION: XR CHEST CLINICAL INFORMATION: Cough. Sputum production. Fever. Rule out pneumonia. COMPARISON: Chest x-ray of 12/15/2016 and multiple prior chest x-rays dated back to 08/09/2012. TECHNIQUE: 2 views of the chest were obtained. FINDINGS: The lungs are mildly hypoexpanded however clear. No pleural effusions or pneumothorax. The cardiomediastinal silhouette is stable and normal. No abnormal tracheal deviation. The visualized osseous structures and upper abdomen are unremarkable. IMPRESSION: No radiographic evidence of pneumonia. No acute pulmonary process. No significant interval change is noted compared to last study.
--- NOTE | 2016-12-20 19:10 | ULTRASOUND REPORT ---
EXAMINATION: US ABDOMEN LIMITED CLINICAL INFORMATION: Abdominal and chest pain for 3 weeks. COMPARISON: Limited abdominal ultrasound of 10/06/2016. Abdomen and pelvic CT scan of 09/16/2016. TECHNIQUE: Real-time imaging of the right upper quadrant abdominal viscera. Technically limited evaluation by patient's body habitus and presence of intra-abdominal gas. FINDINGS: PANCREAS: Visualized portions of the pancreatic head are unremarkable, remainder of the pancreas is obscured by visualization due to overlying bowel gas. LIVER: Normal. The liver demonstrates normal size, contour and echogenicity. No focal lesion or intrahepatic biliary duct dilatation. GALLBLADDER: Normal. The gallbladder is physiologically distended without evidence of stones, sludge, polyps, wall thickening or pericholecystic fluid. COMMON BILE DUCT: Normal in caliber measuring 0.6 cm in diameter. RIGHT KIDNEY: Normal. No hydronephrosis. No renal calculi or focal parenchymal lesions. The kidney measures 10.7 cm in maximum dimension. FREE FLUID: None. IMPRESSION: Incomplete evaluation of the pancreas, otherwise unremarkable right upper quadrant abdominal ultrasound.
[2016-12-20] MEDS ORDERED: IBUPROFEN800 M1 PO (19:31)
[2016-12-20] MEDS ORDERED: ZOFRAN ODT4 M1 SL (19:31)
[2016-12-20] MEDS ORDERED: TYLENOL WITH C1 EACH PO (19:31)
[2016-12-20 20:00] VITALS: BP 115/70
== END 2016-12-20 20:01 ==
LOC: ERH 16:12
PROVIDERS: Physician Assistant
DX: D72.829 Elevated white blood cell count, unspecified (principal); R50.9 Fever, unspecified; R10.11 Right upper quadrant pain
CPT/HCPCS: 81003; 87040; 87086; 96361; 96374; 96375; J1885; J2405

== ENCOUNTER 2016-12-27 14:59 | Emergency (ER) | payer OTHER, MEDICARE ==
[~2016-12-27] VITALS: Ht 170.2 cm; Wt 123.4 kg
[~2016-12-27 14:59] MED LIST changes: +AMOX-CLAV 875-1 EACH PO; +BACLOFEN10 M1 PO; +IBUPROFEN800 M1 PO; +NEURONTIN300 M1 PO; +PANTOPRAZOLE SO40 M1 PO; +ZOLPIDEM TARTRAT5 M1 PO
--- NOTE | 2016-12-27 17:01 | ED CARDIAC/CP/PALPITATIONS ---
History of Present Illness General Chief Complaint: General Adult Stated Complaint: MD CORTES TOLD TO COME FOR RE EVAL Source: patient, old records Exam Limitations: no limitations Vital Signs & Intake/Output Vital Signs & Intake/Output Vital Signs Date Time Temp Pulse Resp B/P B/P Pulse O2 O2 Flow FiO2 Mean Ox Delivery Rate 12/27 1718 98.2 82 20 118/70 96 Room Air 12/27 1613 Room Air 12/27 1518 98.3 96 20 128/77 96 Room Air Allergies Coded Allergies: adhesive (Mild, MAKES SKIN RED 09/16/16) phenobarbital (CASE SKIN 09/16/16) Reconcile Medications Atenolol (Tenormin) 50 MG TABLET 1 TAB PO DAILY BP (Reported) Baclofen 10 MG TABLET 1 TAB PO TID MUSCLE RELAXER (Reported) Benztropine Mesylate 1 MG TABLET 1 TAB PO DAILY MENTAL HEALTH (Reported) Buspirone HCl 15 MG TABLET 1 TAB PO TID MENTAL HEALTH (Reported) Celecoxib (Celebrex) 200 MG CAPSULE 1 CAP PO PRN PAIN/INFLAMMATION (Reported) Clozapine (Clozaril) 100 MG TABLET 2.5 TAB PO QPM MENTAL HEALTH (Reported) Gabapentin (Neurontin) 300 MG CAPSULE 1 CAP PO TID NERVE PAIN (Reported) Hyoscyamine Sulfate 0.125 MG TAB.RAPDIS 1 TAB PO AC & AT BEDTIME PRN GI ( Reported) Ibuprofen 800 MG TABLET 1 TAB PO Q8 PRN PAIN Lisinopril 10 MG TABLET 1 TAB PO DAILY BP (Reported) Pantoprazole Sodium 40 MG TABLET.DR 1 TAB PO DAILY GI (Reported) Promethazine HCl 25 MG TABLET 1 TAB PO TID PRN N/V (Reported) Quetiapine Fumarate (Seroquel) 25 MG TABLET 1 TAB PO TID MENTAL HEALTH ( Reported) Testosterone Cypionate 200 MG/1 ML VIAL 1 ML IM Q3W TESTOSTERONE (Reported) Zolpidem Tartrate 5 MG TABLET 1 TAB PO QHS SLEEP (Reported) Triage Note: PT TO ED FOR RE-EVAL OF UNRESOLVED S/S. PT WAS SEEN IN ED LAST MONDAY FOR C/P, STATES "MY BLOOD CELL COUNT WAS HIGH, I HAVE AN INFECTION". PT STATES HE WAS ADVISED TO COME TO ED BY HIS DOCTORS FOR RE-EVAL OF CONTINUED S/S. C/O NIGHT SWEATS, BACK AND CHEST PAIN. Triage Nurses Notes Reviewed? yes HPI: Patient presents for evaluation of substernal chest pain that began 3 weeks ago. Patient states symptoms have been constant and characterized as moderate to severe in intensity. The pain is a sharp stabbing pain in the midsternum. There is also a burning component that radiates up towards the neck and through to the back. His pain worsens with deep inspiration. He has been treated with 2 rounds of antibiotics (azithromycin and Augmentin) with no change in symptoms. He states that he had a white blood cell count that was elevated and so he is concerned about an ongoing infection. Past History Travel History Traveled to [place] past 21 day No Medical History Any Pertinent Medical History? 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 No Review of Systems Review of Systems Constitutional: Reports: no symptoms. EENTM: Reports: no symptoms. Respiratory: Reports: no symptoms. Cardiovascular: Reports: see HPI. GI: Reports: no symptoms. Genitourinary: Reports: no symptoms. Musculoskeletal: Reports: no symptoms. Skin: Reports: no symptoms. Neurological/Psychological: Reports: no symptoms. Hematologic/Endocrine: Reports: no symptoms. Immunologic/Allergic: Reports: no symptoms. All Other Systems: Reviewed and Negative Physical Exam Physical Exam Cardiovascular: see below Comments: Gen.: Well-nourished, well-developed, no acute respiratory distress. Head: Normocephalic, atraumatic. Eyes: Normal inspection bilaterally Ears: Normal inspection bilaterally Nose: Normal inspection Throat/mouth : Moist mucosa Neck: Supple, full range of motion, no goiter Heart: Regular rate and rhythm, no murmurs rubs or gallops Lungs: Clear to auscultation bilaterally with normal air entry Chest: Tenderness over the sternum Back: Normal range of motion Abdomen: Soft, nontender, nondistended, normal bowel sounds Extremities: Normal range of motion grossly, equal radial pulses, no cyanosis clubbing or edema, calves nontender Neurologic: Cranial nerves grossly intact, speech is clear Skin: warm and dry Psychiatric: Calm, cooperative, no apparent delusions or hallucinations Core Measures ACS in differential dx? No Severe Sepsis Present: No Septic Shock Present: No Progress Differential Diagnosis: aortic dissection, costochondritis, musculoskeletal pain , pericarditis, PUD/GERD, unstable angina Plan of Care: Orders Procedure Date/time Status CULTURE,URINE 12/27 1699 Active URINALYSIS 12/27 1699 Complete TROPONIN LEVEL 12/27 1699 Complete LYME TITRE 12/27 1699 Active COMPREHENSIVE METABOLIC PANEL 12/27 1699 Complete CBC WITHOUT DIFFERENTIAL 12/27 1699 Complete EKG 12/27 151 Active Laboratory Tests 12/27/161714: Anion Gap 11, Estimated GFR > 60, BUN/Creatinine Ratio 11.1, Glucose 82, Calcium 9.3, Total Bilirubin 0.5, AST 17, ALT 46, Alkaline Phosphatase 87, Troponin I < 0.01, Total Protein 6.6, Albumin 3.9, Globulin 2.7, Albumin/Globulin Ratio 1.4, CBC w Diff NO MAN DIFF REQ, RBC 5.05, MCV 82.0, MCH 26.7 L, RDW 17.3 H, MPV 8.6, Gran % 75.6 H, Lymphocytes % 17.5 L, Monocytes % 4.9, Eosinophils % 1.6, Basophils % 0.4, Absolute Granulocytes 6.7 H, Absolute Lymphocytes 1.5, Absolute Monocytes 0.4, Absolute Eosinophils 0.1, Absolute Basophils 0, PUBS MCHC 32.5 L, Lyme Disease Antibody Pending 12/27/161709: Urine Color STRAW, Urine Clarity CLEAR, Urine pH 7.5, Ur Specific [place] 1.010, Urine Protein NEG, Urine Ketones NEG, Urine Nitrite NEG, Urine Bilirubin NEG, Urine Urobilinogen 0.2, Ur Leukocyte Esterase NEG, Ur Microscopic EXAM NOT REQUIRED, Urine Hemoglobin NEG, Urine Glucose NEG Microbiology 12/27 1709 URINE ROUT: Urine Culture - RECD Diagnostic Imaging: Discussed w/RAD: Radiology Read. CXR Impression: PATIENT: ROE ANDRADE PRESENT AGE: 31 PATIENT ACCOUNT NO: [id number] : 85 LOCATION: [facility] ORDERING PHYSICIAN: LUIS MANUEL NASCIMENTO MD SERVICE DATE: 12/27/16 EXAM TYPE: RAD - XRY-CHEST XRAY, PA AND LATERAL EXAMINATION: XR CHEST CLINICAL INFORMATION: Chest pain COMPARISON: 12/20/2016 TECHNIQUE: 3 views submitted FINDINGS: No acute finding. Lung briggs are grossly clear. Heart size felt to be within normal limits given the patient body habitus. No effusion. No infiltrate. IMPRESSION: No acute process. DICTATED BY: LUIS MANUEL WING MD DATE/TIME DICTATED:12/27/161719 CLINICAL LABORATORY TECHNICIAN:CASSANDRA DATE/TIME TRANSCRIBED:12/27/161719 CONFIDENTIAL, DO NOT COPY WITHOUT APPROPRIATE AUTHORIZATION. <Electronically signed in Other Vendor System> SIGNED BY: LUIS MANUEL WING MD 12/27/161724 Initial ED EKG: NSR, rate (93), BORDERLINE LAD Comments: 12/27/2016 7:07:48 PM I have updated Roe on his test results. The etiology of his chest pain is unclear at this point. I considered the following: Pericarditis but the patient had no pericardial friction rub, no preceding viral illnesses and no EKG changes consistent with this. Acute coronary syndrome but the patient's EKG showed no acute changes, the troponin level was normal, the patient had a paucity of risk factors and the patient's clinical presentation wasn't consistent with this. Pneumothorax but the chest x-ray did not show this. Pneumonia but the chest x-ray did not show infiltrate. Pulmonary embolus but the patient had no resting tachycardia, was not hypoxic, had a paucity of risk factors and was PERC and Wells negative. Aortic aneurysm but the description of the patient's pain was inconsistent with this. The chest x-ray showed no widened mediastinum or other changes consistent with this. In addition the patient had a paucity of risk factors. Departure Departure Disposition: HOME OR SELF CARE Condition: Stable Clinical Impression Primary Impression: Atypical chest pain Referrals: HEMA SOL,SARAH La (PCP/Family) Additional Instructions: Follow-up with your primary care physician appointment tomorrow as scheduled. Continue your current medications. Avoid exertion or heavy lifting. Return if any concerns or sudden worsening. Please note that there might be incidental findings in your evaluation that are unrelated to the current emergency department visit. Please notify your primary care doctor about this emergency department visit in order to obtain and review all of the testing performed so that these incidental findings can be monitored as needed. If you had an x-ray performed, please understand that some fractures may not be seen on the initial set of x-rays. If your symptoms persist you might need a repeat set of x-rays to check for such a fracture. If you had a laceration evaluated, please understand that foreign bodies such as glass or wood may not be visible to the naked eye or on plain x-rays. If the wound becomes red, swollen, increasingly more painful or if there is any drainage from the wound, please have it reevaluated by a physician for the possibility of a retained foreign body. Thank you for choosing the [facility] Emergency Department for your care. It was a pleasure to serve you today. Luis Manuel Nascimento M.D. [facility] Departure Forms: Customer Survey General Discharge Information Critical Care Note Critical Care Note Critical Care Time: non-applicable
--- NOTE | 2016-12-27 17:25 | RADIOLOGY REPORT ---
EXAMINATION: XR CHEST CLINICAL INFORMATION: Chest pain COMPARISON: 12/20/2016 TECHNIQUE: 3 views submitted FINDINGS: No acute finding. Lung birggs are grossly clear. Heart size felt to be within normal limits given the patient body habitus. No effusion. No infiltrate. IMPRESSION: No acute process.
[2016-12-27 17:36] LABS: ABSOLUTE BASOPHIL COUNT 0 /CUMM (0.0-0.2); ABSOLUTE EOSINOPHIL COUNT 0.1 /CUMM (0.0-0.7); ABSOLUTE GRANULOCYTE CT 6.7 /CUMM (1.4-6.5); ABSOLUTE LYMPH COUNT 1.5 /CUMM (1.2-3.4); ABSOLUTE MONOCYTE COUNT 0.4 /CUMM (0.10-0.60); BASOPHIL % 0.4 % (0.0-2.0); EOSINOPHIL % 1.6 % (0-5); GRANULOCYTE % 75.6 % (42.2-75.2); HEMATOCRIT 41.4 % (42-52); MEAN CORPUSCULAR HGB 26.7 PG (27.0-31.0); MEAN CORPUSCULAR HGB CONC 32.5 G/DL (33.0-37.0); MEAN PLATELET VOLUME 8.6 FL (7.4-10.4); PLATELET COUNT 217 /CUMM (130-400); RBC DISTRIBUTION WIDTH 17.3 % (11.5-14.5); RED BLOOD CELL CT 5.05 /CUMM (4.70-6.10); WHITE BLOOD CELL COUNT 8.9 /CUMM (4.8-10.8)
[2016-12-27 19:19] VITALS: BP 120/76
== END 2016-12-27 19:20 ==
LOC: ERH 14:59
PROVIDERS: Emergency Medicine
DX: R07.89 Other chest pain (principal)
CPT/HCPCS: 86618; 81003; 87086; 93005; 93010; 96372; J1885

== ENCOUNTER 2017-03-23 13:41 | Emergency (ER) | payer OTHER, MEDICARE ==
[~2017-03-23] VITALS: Ht 170.2 cm; Wt 127.0 kg
--- NOTE | 2017-03-23 14:46 | ED NECK/BACK PAIN COMPLAINT ---
History of Present Illness General Chief Complaint: General Adult Stated Complaint: NECK PAIN X 3.5 WEEKS; ABD PAIN X 1 WEEK Source: patient Exam Limitations: no limitations Vital Signs & Intake/Output Vital Signs & Intake/Output Vital Signs Date Time Temp Pulse Resp B/P B/P Pulse O2 O2 Flow FiO2 Mean Ox Delivery Rate 03/23 1351 97.5 92 20 115/76 97 Room Air Allergies Coded Allergies: adhesive (Mild, MAKES SKIN RED 09/16/16) phenobarbital (CASE SKIN 09/16/16) Reconcile Medications Atenolol (Tenormin) 50 MG TABLET 1 TAB PO DAILY BP (Reported) Baclofen 10 MG TABLET 1 TAB PO TID MUSCLE RELAXER (Reported) Benztropine Mesylate 1 MG TABLET 1 TAB PO DAILY MENTAL HEALTH (Reported) Buspirone HCl 15 MG TABLET 1 TAB PO TID MENTAL HEALTH (Reported) Celecoxib (Celebrex) 200 MG CAPSULE 1 CAP PO PRN PAIN/INFLAMMATION (Reported) Clozapine (Clozaril) 100 MG TABLET 2.5 TAB PO QPM MENTAL HEALTH (Reported) Gabapentin (Neurontin) 300 MG CAPSULE 1 CAP PO TID NERVE PAIN (Reported) Hyoscyamine Sulfate 0.125 MG TAB.RAPDIS 1 TAB PO AC & AT BEDTIME PRN GI ( Reported) Ibuprofen 800 MG TABLET 1 TAB PO Q8 PRN PAIN Lisinopril 10 MG TABLET 1 TAB PO DAILY BP (Reported) Pantoprazole Sodium 40 MG TABLET.DR 1 TAB PO DAILY GI (Reported) Promethazine HCl 25 MG TABLET 1 TAB PO TID PRN N/V (Reported) Quetiapine Fumarate (Seroquel) 25 MG TABLET 1 TAB PO TID MENTAL HEALTH ( Reported) Testosterone Cypionate 200 MG/1 ML VIAL 1 ML IM Q3W TESTOSTERONE (Reported) Zolpidem Tartrate 5 MG TABLET 1 TAB PO QHS SLEEP (Reported) Triage Note: PT PRESENTS TO ER C/O OF ABDOMINAL PAIN X 1 WEEK. PT STATES PAIN IS LOCATED IN RUQ AND LLQ. PT STATES PAIN IS SHARP AND ACHY AT TIMES. PT DENIES N/V/D. PT STATES HE HAS ALSO BEEN HAVING CHRONIC NECK PAIN. PT STATES HE CALLED PRIMARY DOCTOR WHO TOLD HIM TO COME TO ER FOR EVAL Triage Nurses Notes Reviewed? yes HPI: Pt is coming for chronic ab pain x 1 year and new onset neck pain x 4 wks. He c /o the neck pain has been sharp and constant on the back of the neck and radiates to right back of the head, also casuing numbness/tingling starting at the right thign and shoots down to the right ankle, in addition to similar numbness/tingling of his upper right arm and hand, as well as numbness/tingling of his right face (GIAN SOL,SWAPNIL ALEXANDER) Past History Travel History Traveled to [place] past 21 day No Medical History Any Pertinent Medical History? see below for history Neurological: SEIZURES A CHILD EENT: NONE Cardiovascular: NONE Respiratory: NONE Gastrointestinal: pancreatitis Hepatic: NONE Renal: NONE Musculoskeletal: chronic back pain, CHRONIC KNEE PAIN Psychiatric: schizo affective disorder Endocrine: NONE Blood Disorders: NONE Cancer(s): NONE CREDIT COLLECTIONS CLERK/Reproductive: NONE Surgical History Surgical History: appendectomy, hernia repair Psychosocial History Who do you live with Family Services at Home None What is your primary language Serbian Tobacco Use: Never used Family History Hx Contributory? No (GIAN SOL,SWAPNIL ALEXANDER) Review of Systems Review of Systems Constitutional: Reports: see HPI. Comments Constitutional: no significant weight gain or loss and no fatigue, fever, night sweats, or exercise intolerance. Skin: no jaundice, hives, eczema, rashes, or abnormal moles. Eyes: no irritation, discharge, dry eyes, or vision change. ENMT: Episodic headache that correlates to the neck pain. no sneezing, snoring, hearing loss, ear pain, frequent nosebleeds, nose/sinus problems, bleeding gums, dry mouth, mouth ulcers, oral abnormalities, teeth problems, or sore throat. Neck:Right side neck pain. Respiratory: no cough, wheezing, shortness of breath, or coughing up blood. Cardiovascular: no SOB, no palpitations, chest pain, no arm pain on exertion, or leg swelling. Gastrointestinal: Vomiting 1 shot glasses after each meal, non bloody. Episodic constipation, abdominal pain, NO rectal bleeding, and normal appetite. Genitourinary: no incontinence, hematuria, difficulty urinating, or increased frequency. Musculoskeletal: Weakness/numbness/tingling of right side of body. no arthralgias/joint pain, and back pain; Neurologic: no loss of consciousness or balance; Psych: no depression, anxiety, sleep disturbances, homicidal thoughts, or suicidal thoughts. (GIAN SOL,SWAPNIL ALEXANDER) Physical Exam Physical Exam General Appearance: no apparent distress, alert, awake, mild distress, obese Neck: normal inspection, supple, full range of motion, normal alignment Comments: Head: normocephalic and atraumatic. Eyes: no discharge or pallor and non-injected. PERRLA. EOMI. non-icteric sclaerae. Peripheral vision grossly intact and acuity grossly intact. ENMT: Ears: no lesions on external ear, EACs clear, TMs clear, and TM mobility normal. Hearing: no hearing loss. Nose: no lesions on external nose, septal deviation, sinus tenderness, or nasal discharge and nares patent and nasal passages clear. Lips, Teeth, and Gums: no mouth or lip ulcers or bleeding gums and normal dentition. Oropharynx: no erythema or exudates and moist mucous membranes and tonsils not enlarged. Neck: Pain upon palpation on the right side. supple, FROM, trachea midline, and no masses. Lymph Nodes: no axillary LAD, cervical LAD, inguinal LAD, submandibular LAD, submental LAD, or supraclavicular LAD. Thyroid: no enlargement or nodules and non-tender. Lungs: Respiratory effort: no dyspnea and good air movement. Cardiovascular: Apical Impulse: not displaced. normal S1 and S2; no murmurs, rubs, or gallops; and RRR. no carotid bruits. Abdomen: Tenderness upon palpation on the right side of ab/rib cage. No masses, or CVA tenderness and soft and non-distended. Back: normal curvature; No tenderness upon palpation. Musculoskeletal:: Right side extremities showed weaker strength than left side extremities. Mild tremor in bilateral extremities. Joints, Bones, and Muscles: no contractures, malalignment, tenderness, or bony abnormalities and normal movement of all extremities. Neurologic: normal gait and station. Cranial Nerves: grossly intact. Sensation: grossly intact. C/o of numbness/tingling of right side. Skin: no rash, lesions, ulcer, induration, nodules, jaundice, or abnormal nevi and good turgor. Psychiatric: good judgement. Normal mood and affect and active and alert. Orientation to time, place, and person. Recent memory normal and remote memory normal. (GIAN SOL,SWAPNIL ALEXANDER) Progress Differential Diagnosis: TIA, Stroke Diagnostic Imaging: Discussed w/RAD: Radiology Read. Radiology Impression: PATIENT: ANDI ANDRADE PRESENT AGE: 31 PATIENT ACCOUNT NO: [id number] : 85 LOCATION: [facility] ORDERING PHYSICIAN: SWAPNIL SPRINGER MD SERVICE DATE: 03/23/17-3646 EXAM TYPE: CAT - CT CERV SPINE WO IV CONTRAST; CT HEAD WO IV CONTRAST EXAMINATIONS: CT HEAD WITHOUT CONTRAST AND CT CERVICAL SPINE WITHOUT CONTRAST CLINICAL INFORMATION: Right-sided neck and head tingling. COMPARISON: 11/22/2012. TECHNIQUE: Contiguous helical images of the brain were obtained without IV contrast. Contiguous helical images of the cervical spine were obtained without IV contrast. Multiplanar reconstructions were performed. DLP: 965 mGy-cm. FINDINGS: There are no pathologic extra-axial fluid collections. The lateral, third, fourth ventricles are nondilated and concordant with the appearance of the sulci. There is no evidence for acute intraparenchymal hemorrhage or infarct. There is neither mass nor mass effect. There is no shift of midline structures. The paranasal sinuses and mastoid air cells are clear. There are no osseous lesions. The cervical vertebra are in normal alignment. Disc heights and vertebral heights are well-preserved. There are no fractures. There is no prevertebral soft tissue swelling. There is no cervical lymphadenopathy. The visualized lung apices are clear. IMPRESSION: No evidence for acute intracranial injury. No evidence for acute injury to the cervical spine. DICTATED BY: JOVANNY COTE MD DATE/TIME DICTATED:03/23/171558 LOG TUMBLER:CASSANDRA DATE/ TIME TRANSCRIBED:03/23/171558 CONFIDENTIAL, DO NOT COPY WITHOUT APPROPRIATE AUTHORIZATION. <Electronically signed in Other Vendor System> SIGNED BY: JOVANNY COTE MD 03/23/17 1607 (GIAN SOL,SWAPNIL ALEXANDER) Plan of Care: Orders Procedure Date/time Status LACTIC ACID 03/23 1754 Active LACTIC ACID 03/23 1454 Complete COMPREHENSIVE METABOLIC PANEL 03/23 1454 Complete CBC WITHOUT DIFFERENTIAL 03/23 1454 Complete Laboratory Tests 03/23/17 1500: Anion Gap 10, Estimated GFR > 60, BUN/Creatinine Ratio 21.0, Glucose 92, Lactic Acid 0.8, Calcium 10.1, Total Bilirubin 0.5, AST 17, ALT 33, Alkaline Phosphatase 89, Total Protein 7.3, Albumin 4.6, Globulin 2.7, Albumin/Globulin Ratio 1.7, CBC w Diff NO MAN DIFF REQ, RBC 5.24, MCV 82.0, MCH 27.1, RDW 14.7 H , MPV 9.3, Gran % 82.9 H, Lymphocytes % 11.7 L, Monocytes % 4.0, Eosinophils % 1.1, Basophils % 0.3, Absolute Granulocytes 7.4 H, Absolute Lymphocytes 1.0 L, Absolute Monocytes 0.4, Absolute Eosinophils 0.1, Absolute Basophils 0, PUBS MCHC 33.1 03/23/17 1652 Pt's head and cervical CT came back negative of TIA and stroke. Otherwise there is no acute complaint per patient at this moment. We will discharge him and ask him to f/u with PCP and neurologist for pain/parasthesia. (GIAN SOL,SWAPNIL ALEXANDER) Departure Departure Disposition: HOME OR SELF CARE Condition: Stable Additional Instructions: Please followup with your primary care doctor/Neurologist/GI specialist within 7 -10 days. If your symptoms get worse, please come back to ER. Avoid known foods that may causing your Gi allergy. Departure Forms: Customer Survey General Discharge Information (GIAN SOL,SWAPNIL ALEXANDER) Departure Clinical Impression Primary Impression: Neck pain, chronic Secondary Impressions: Abdominal pain, chronic, right upper quadrant, Paresthesia and pain of right extremity Referrals: MALIK SOL,KRYSTYNA GARRIDO MD,SARAH La (PCP/Family) Resident Co-Sign Statement Statement: ED Attending supervision documentation- [X] I saw and evaluated the patient. I have also reviewed all the pertinent lab results and diagnostic results. I agree with the findings and the plan of care as documented in the Resident's documentation. [] I have reviewed the ED Record and agree with the Resident's documentation. [] Additions or exceptions (if any) to the Resident's note and plan are summarized below: [] (IVETT SOL,DRE Eugene)
[2017-03-23 15:33] LABS: ABSOLUTE BASOPHIL COUNT 0 /CUMM (0.0-0.2); ABSOLUTE EOSINOPHIL COUNT 0.1 /CUMM (0.0-0.7); ABSOLUTE GRANULOCYTE CT 7.4 /CUMM (1.4-6.5); ABSOLUTE MONOCYTE COUNT 0.4 /CUMM (0.10-0.60); BASOPHIL % 0.3 % (0.0-2.0); EOSINOPHIL % 1.1 % (0-5); GRANULOCYTE % 82.9 % (42.2-75.2); MEAN CORPUSCULAR HGB 27.1 PG (27.0-31.0); MEAN CORPUSCULAR HGB CONC 33.1 G/DL (33.0-37.0); MEAN PLATELET VOLUME 9.3 FL (7.4-10.4); PLATELET COUNT 183 /CUMM (130-400); RBC DISTRIBUTION WIDTH 14.7 % (11.5-14.5); RED BLOOD CELL CT 5.24 /CUMM (4.70-6.10); WHITE BLOOD CELL COUNT 8.9 /CUMM (4.8-10.8)
--- NOTE | 2017-03-23 16:07 | CT SCAN REPORT ---
EXAMINATIONS: CT HEAD WITHOUT CONTRAST AND CT CERVICAL SPINE WITHOUT CONTRAST CLINICAL INFORMATION: Right-sided neck and head tingling. COMPARISON: 11/22/2012. TECHNIQUE: Contiguous helical images of the brain were obtained without IV contrast. Contiguous helical images of the cervical spine were obtained without IV contrast. Multiplanar reconstructions were performed. DLP: 965 mGy-cm. FINDINGS: There are no pathologic extra-axial fluid collections. The lateral, third, fourth ventricles are nondilated and concordant with the appearance of the sulci. There is no evidence for acute intraparenchymal hemorrhage or infarct. There is neither mass nor mass effect. There is no shift of midline structures. The paranasal sinuses and mastoid air cells are clear. There are no osseous lesions. The cervical vertebra are in normal alignment. Disc heights and vertebral heights are well-preserved. There are no fractures. There is no prevertebral soft tissue swelling. There is no cervical lymphadenopathy. The visualized lung apices are clear. IMPRESSION: No evidence for acute intracranial injury. No evidence for acute injury to the cervical spine.
[2017-03-23] MEDS ORDERED: NEURONTIN600 M1 PO (17:02)
[2017-03-23] MEDS ORDERED: TAMSULOSIN HCL0.4 M1 PO (17:04)
[2017-03-23] MEDS ORDERED: ZOLPIDEM TARTRA10 M1 PO (17:04)
[2017-03-23] MEDS ORDERED: BREO ELLIPTA 21 EACH INH (17:04)
[2017-03-23] MEDS ORDERED: CYCLOBENZAPRINE10 M1 PO (17:05)
[2017-03-23] MEDS ORDERED: INDOMETHACIN50 M1 PO (17:05)
[2017-03-23] MEDS ORDERED: CRANBERRY PLUS1 EAC1 PO (17:06)
[2017-03-23] MEDS ORDERED: LIDOCAINE HC28.35 GM TOP (17:06)
[2017-03-23] MEDS ORDERED: MAGNESIUM OXID400 M1 PO (17:06)
[2017-03-23] MEDS ORDERED: VALERIAN450 MG PO (17:07)
[2017-03-23] MEDS ORDERED: SF 5000 PLUS51 GM TOP (17:08)
[2017-03-23] MEDS ORDERED: PROAIR HFA8.5 GM INH (17:08)
[2017-03-23 17:22] VITALS: BP 133/83
== END 2017-03-23 17:23 ==
LOC: ERH 13:41
DX: G89.29 Other chronic pain (principal); M54.2 Cervicalgia; R10.11 Right upper quadrant pain; R20.2 Paresthesia of skin; M79.604 Pain in right leg

== ENCOUNTER 2017-12-01 14:56 | Emergency (ER) | payer OTHER, MEDICARE ==
[~2017-12-01] VITALS: Ht 170.2 cm; Wt 120.7 kg
[~2017-12-01 14:56] MED LIST changes: +BREO ELLIPTA 21 EACH INH; +BUTALB-ACETAMI1 EAC1 PO; +CLOZARIL25 MG PO; +CRANBERRY PLUS1 EACH PO; +CYCLOBENZAPRINE10 M1 PO; +FLUTICASONE PRO16 GM NASB; +GABAPENTIN600 M1 PO; +INDOMETHACIN50 M1 PO; +LEVAQUIN750 M1 PO; +LIDOCAINE HC28.35 GM TOP; +MAGNESIUM OXID400 M1 PO; +METOCLOPRAMIDE H5 MG PO; +METOPROLOL SUCC50 M2 PO; +NEURONTIN800 M2 PO; +OXYCODONE HCL5 M2 PO; +PROAIR HFA8.5 GM INH; +ROBAXIN500 M1 PO; +SF 5000 PLUS51 GM TOP; +TAMSULOSIN HCL0.4 M1 PO; +VALERIAN450 MG PO
[2017-12-01 15:02] VITALS: BP 149/95
--- NOTE | 2017-12-01 15:17 | ED GI/GU/ABDOMINAL COMPLAINT ---
History of Present Illness General Chief Complaint: Abdominal Pain/Flank Pain Stated Complaint: ABD/FLANK PAIN Source: patient, old records Exam Limitations: no limitations Vital Signs & Intake/Output Vital Signs & Intake/Output Vital Signs Date Time Temp Pulse Resp B/P B/P Pulse O2 O2 Flow FiO2 Mean Ox Delivery Rate 12/01 1626 96 Room Air 12/01 1502 97.4 102 15 149/95 96 Room Air Room Air Allergies Coded Allergies: adhesive (Mild, MAKES SKIN RED 12/01/17) phenobarbital (CASE SKIN 12/01/17) Reconcile Medications Atenolol (Tenormin) 50 MG TABLET 1 TAB PO DAILY BP (Reported) Benztropine Mesylate 1 MG TABLET 1 TAB PO DAILY MENTAL HEALTH (Reported) Buspirone HCl 15 MG TABLET 1 TAB PO TID MENTAL HEALTH (Reported) Butalb/Acetaminophen/Caffeine (Ntlywo-Wqiaupav-Quit 50-300-40) 50 MG-300 MG-40 MG CAPSULE 1 TAB PO Q4 HRS NEEDED PRN HEADACHE (Reported) Clozapine (Clozaril) 100 MG TABLET 2 TAB PO QPM MENTAL HEALTH (Reported) Clozapine (Clozaril) 25 MG TABLET 1 TAB PO QPM MENTAL HEALTH (Reported) Cyclobenzaprine HCl 10 MG TABLET 1 TAB PO BID MUSCLE RELAXER (Reported) Fluticasone Propionate 50 MCG/ACTUATION SPRAY.SUSP 2 SPRAY NASB DAILY ALLERGIES (Reported) Fluticasone/Vilanterol (Breo Ellipta 200-25 Mcg INH) 200 MCG-25 MCG/DOSE BLST.W.DEV 1 PUFF INH DAILY RESPIRATORY (Reported) Gabapentin (Neurontin) 300 MG CAPSULE 1 CAP PO QAM NERVE PAIN (Reported) Gabapentin (Neurontin) 800 MG TABLET 3 TAB PO QPM NEUROPATHY (Reported) Gabapentin 600 MG TABLET 1 TAB PO TID UNKNOWN (Reported) Lisinopril 10 MG TABLET 1 TAB PO DAILY BP (Reported) Magnesium Oxide 400 MG TABLET 1 TAB PO DAILY SUPPLEMENT (Reported) Methocarbamol (Robaxin) 500 MG TABLET 1 TAB PO TID PRN muscle spasms Metoclopramide HCl 5 MG TABLET 1 TAB PO Q6-PRN PRN NAUSEA/VOMITING (Reported) Metoprolol Succinate 50 MG TAB.ER.24H 1 TAB PO DAILY HEART (Reported) Ondansetron (Zofran Odt) 4 MG TAB.RAPDIS 1 TAB SL TID PRN NAUSEA/VOMITING ( Reported) Oxycodone HCl 5 MG CAPSULE 1 CAP PO 4XDP Abdominal pain Pantoprazole Sodium 40 MG TABLET.DR 1 TAB PO DAILY GI (Reported) Quetiapine Fumarate (Seroquel) 25 MG TABLET 1 TAB PO TID MENTAL HEALTH ( Reported) Tamsulosin HCl 0.4 MG CAP.ER.24H 1 CAP PO DAILY (Reported) Testosterone Cypionate 200 MG/1 ML VIAL 1 ML IM Q3W TESTOSTERONE (Reported) Tylenol With Codeine (Tylenol With Codeine #3 Tablet) 300 MG-30 MG TABLET 1 TAB PO BIDP PRN PAIN (Reported) Zolpidem Tartrate 10 MG TABLET 1 TAB PO QPM SLEEP (Reported) Triage Note: PT SENT TO ED BY PRIMARY FOR R FLANK/ABD PAIN SINCE 2 WEEKS AGO. +NAUSEA AND VOMITING S/P DRINKING FLUIDS. HX OF PANCREATITIS. LAST NBM: THIS MORNING. SENT FOR IV FLUIDS, BLOOD WORK AND POSSIBLE CAT SCAN. Triage Nurses Notes Reviewed? yes Onset: Gradual Duration: week(s):, intermittent, waxing and waning Timing: recent history Quality/Severity: aching, moderate Severity Numbers: 6 Location: right flank Radiation: RLQ, RUQ Activities at Onset: none No Modifying Factors: none Associated Symptoms: denies HPI: 32-year-old male with history of schizoaffective disorder, Klinefelter syndrome, appendectomy hernia repair presents to ER for evaluation complaining of right flank pain rated the right side of his abdomen for the past few weeks associated with nausea vomiting. His last episode of vomiting was yesterday. No hematemesis. He also reports diarrhea for the past few weeks. He is been seen numerous times in the past for similar complaints no swelling of the new information technology architect in [place]. He denies any urinary urgency frequency dysuria hematuria. No fever no chills. No chest pain. He states this feels similar to when he had pancreatitis in the past. No recent EtOH use. symptoms come on randomly, no association of sx with eating or drinking. (Marcelino DE LA ROSA,Raymundo) Past History Travel History Traveled to [place] past 21 day No Medical History Any Pertinent Medical History? see below for history Neurological: SEIZURES A CHILD EENT: NONE Cardiovascular: NONE Respiratory: NONE Gastrointestinal: pancreatitis Hepatic: NONE Renal: NONE Musculoskeletal: chronic back pain, CHRONIC KNEE PAIN Psychiatric: schizo affective disorder Endocrine: NONE Blood Disorders: NONE Cancer(s): NONE DIRECTOR MARKET INTELLIGENCE/Reproductive: NONE Surgical History Surgical History: appendectomy, hernia repair Psychosocial History Who do you live with Family Services at Home None What is your primary language Kinyarwanda Tobacco Use: Current Not Daily ETOH Use: occasional use Illicit Drug Use: denies illicit drug use Family History Hx Contributory? No (Raymundo Charles) Review of Systems Review of Systems Constitutional: Reports: see HPI. Comments Review of systems: See HPI, All other systems negative. Constitutional, no chills no fever HEENT: no sore throat no congestion Cardiovascular: No chest pain , no palpitation Skin: no rashes, no change in skin Respiratory: No dyspnea no cough no sputum GI: nausea vomiting, diarrhea, no bloating/constipation : No dysuria No hematuria, no frequency Muscle skeletal: No joint pain, no back pain, no neck pain, Neurologic: , no headache Heme/endocrine: No bruising Immunology: No lymphadenopathy (Raymundo Charles) Physical Exam Physical Exam General Appearance: well developed/nourished, alert, awake Gastrointestinal: soft, tenderness Comments: Well-developed well-nourished person in no acute distress HEENT: Normal EENT exam; PERRL, EOMI,HEAD is atraumatic. moist mucous membranes. Neck: Supple, normal range of motion Back: Nontender, right CVA tenderness. Full range of motion Cardiovascular: Regular rate and rhythms no murmur Respiratory:No respiratory distress. Patient speaking in full complete sentences. Breath sounds clear to auscultation bilaterally: NO W/R/R Abdomen: Soft, nontender nondistended, no appreciable organomegaly. Normal bowel sounds. No rebound/guarding, No ascites. Extremity: No edema, full range of motion of extremities Neuro: Alert oriented x3, motor sensory normal, There were no obvious focal neurologic abnormalities. Skin: No appreciable rash on exposed skin, skin is warm and dry. No jaundice no diaphoresis Psych: Mood and affect is normal, memory and judgment is normal. Core Measures ACS in differential dx? No Sepsis Present: No Sepsis Focused Exam Completed? No (Raymundo Charles) Progress Differential Diagnosis: biliary colic, bowel obstruction, diverticulitis, gastritis, hepatitis, inflamm bowel dis, pancreatitis, peptic ulcer, PUD/GERD, perforated viscous, pyelonephritis, ureterolithiasis, UTI/pyelo Plan of Care: Orders Procedure Date/time Status CULTURE,URINE 12/01 150 Active URINALYSIS 12/01 150 Complete LIPASE 12/01 150 Complete COMPREHENSIVE METABOLIC PANEL 12/01 150 Complete CBC WITHOUT DIFFERENTIAL 12/01 150 Complete Laboratory Tests 12/01/17 1607: Urine Color YEL, Urine Clarity CLEAR, Urine pH 6.0, Ur Specific [place] 1.025, Urine Protein NEG, Urine Ketones NEG, Urine Nitrite NEG, Urine Bilirubin NEG, Urine Urobilinogen 0.2, Ur Leukocyte Esterase NEG, Ur Microscopic EXAM NOT REQUIRED, Urine Hemoglobin NEG, Urine Glucose NEG 12/01/17 1601: Anion Gap 13, Estimated GFR > 60, BUN/Creatinine Ratio 17.8, Glucose 92, Calcium 9.8, Total Bilirubin 0.5, AST 16 L, ALT 26, Alkaline Phosphatase 103, Total Protein 7.5, Albumin 4.6, Globulin 2.9, Albumin/Globulin Ratio 1.6, Lipase 62, CBC w Diff NO MAN DIFF REQ, RBC 5.25, MCV 82.3, MCH 26.9 L, MCHC 32.6 L, RDW 15.5 H, MPV 9.7, Gran % 82.8 H, Lymphocytes % 11.8 L, Monocytes % 4.3, Eosinophils % 0.6, Basophils % 0.5, Absolute Granulocytes 6.6 H, Absolute Lymphocytes 0.9 L, Absolute Monocytes 0.3, Absolute Eosinophils 0, Absolute Basophils 0 Microbiology 12/01 160 URINE ROUT: Urine Culture - RECD Labs ordered patient resting in no apparent distress tolerating by mouth challenge, he is been seen numerous times in the past for similar complaints and states he did not want to come today, but his doctor insisted that he come for labs and a CAT scan. I discussed with the patient at length all of their results. I had an extensive conversation regarding need for close follow up with their primary care physician this week as well as return precautions. I answered all of their questions, they feel comfortable with the plan and follow-up care. He has Zofran and Reglan at home Initial ED EKG: none (Marcelino DE LA ROSA,Raymundo) Departure Departure Disposition: HOME OR SELF CARE Condition: Stable Clinical Impression Primary Impression: Abdominal pain Secondary Impressions: Nausea vomiting and diarrhea Referrals: Baldev LOVE,Bruce L. Additional Instructions: Use [id number] Imodium for diarrhea. Zofran for nausea. [place] diet clear liquids. Follow-up with your information technology architect as scheduled. Return with any concerns. Departure Forms: Customer Survey General Discharge Information (Marcelino DE LA ROSA,Raymundo) PA/PRODUCT HANDLER Co-Sign Statement Statement: ED Attending supervision documentation- I saw and evaluated the patient. I have also reviewed all the pertinent lab results and diagnostic results. I agree with the findings and the plan of care as documented in the PA's/PRODUCT HANDLER's documentation. x I have reviewed the ED Record and agree with the PA's/PRODUCT HANDLER's documentation. [] Additions or exceptions (if any) to the PAs/PRODUCT HANDLER's note and plan are summarized below: [] (Rafa SOL,Damián)
[2017-12-01 16:18] LABS: ABSOLUTE BASOPHIL COUNT 0 /CUMM (0.0-0.2); ABSOLUTE EOSINOPHIL COUNT 0 /CUMM (0.0-0.7); ABSOLUTE GRANULOCYTE CT 6.6 /CUMM (1.4-6.5); ABSOLUTE LYMPH COUNT 0.9 /CUMM (1.2-3.4); ABSOLUTE MONOCYTE COUNT 0.3 /CUMM (0.10-0.60); BASOPHIL % 0.5 % (0.0-2.0); EOSINOPHIL % 0.6 % (0-5); GRANULOCYTE % 82.8 % (42.2-75.2); HEMATOCRIT 43.3 % (42-52); MEAN CORPUSCULAR HGB 26.9 PG (27.0-31.0); MEAN CORPUSCULAR HGB CONC 32.6 G/DL (33.0-37.0); MEAN CORPUSCULAR VOLUME 82.3 FL (80.0-94.0); MEAN PLATELET VOLUME 9.7 FL (7.4-10.4); PLATELET COUNT 210 /CUMM (130-400); RBC DISTRIBUTION WIDTH 15.5 % (11.5-14.5); RED BLOOD CELL CT 5.25 /CUMM (4.70-6.10)
--- NOTE | 2017-12-01 16:36 | CT SCAN REPORT ---
EXAMINATION: CT ABDOMEN AND PELVIS WITHOUT CONTRAST CLINICAL INFORMATION: Right flank pain radiating to the right lower quadrant. History of appendectomy. COMPARISON: 08/17/2017 TECHNIQUE: Multidetector volumetric imaging was performed from the superior aspect of the liver through the pubic symphysis. Sagittal and coronal reformatted images were obtained on the technologist's workstation. DLP: 1320 mGy-cm FINDINGS: LUNG BASES: The visualized lung bases are unremarkable. LIVER, GALLBLADDER, AND BILIARY TREE: The liver is normal in size, shape, and attenuation. No focal hepatic lesion or biliary ductal dilatation is present. The gallbladder is unremarkable with no evidence of radiopaque gallstones, gallbladder wall thickening, or obvious pericholecystic inflammatory changes. PANCREAS: Unremarkable. SPLEEN: Unremarkable. ADRENAL GLANDS: Unremarkable. KIDNEYS AND URETERS: The kidneys are normal in size, shape, and attenuation. No hydronephrosis, hydroureter, or calculi seen. No perinephric stranding. BLADDER: Unremarkable. GASTROINTESTINAL TRACT: The stomach is unremarkable. The small bowel is normal in caliber. No obstruction. No colonic wall thickening or inflammatory change. Status post appendectomy. No free air or free fluid. ABDOMINAL WALL: No significant hernia is appreciated. LYMPH NODES: Normal. VASCULAR: Unremarkable. PELVIC VISCERA: The prostate and seminal vesicles are unremarkable. OSSEOUS STRUCTURES: No acute or suspicious osseous abnormality. IMPRESSION: No acute findings of the abdomen or pelvis. No hydronephrosis or nephrolithiasis. No inflammatory changes.
== END 2017-12-01 17:32 ==
LOC: ERH 14:56
PROVIDERS: Physician Assistant Medical
DX: R11.2 Nausea with vomiting, unspecified (principal); R19.7 Diarrhea, unspecified; R10.31 Right lower quadrant pain
CPT/HCPCS: 74176; 81003; 87086